=== PATIENT | female | born 1995 | race Caucasian/White ===

== ENCOUNTER 2021-10-23 18:39 | Observation (INO) | payer SELFPAY ==
[2021-10-23] MEDS ORDERED: Ondansetron 4 MG/2 ML SDV IVPUSH PRN (19:39)
[2021-10-23] MEDS ORDERED: LORazepam 2 MG/ML SDV IVPUSH PRN (19:39)
[2021-10-23] MEDS ORDERED: Sodium Chloride 0.9% 10 ML Syringe FLUSH PRN (19:39)
[2021-10-23] MEDS ORDERED: Ondansetron 4 MG Tab.DIS PO PRN (19:39)
[2021-10-23] MEDS ORDERED: Multivitamin Tab PO ONE (19:39)
[2021-10-23] MEDS ORDERED: Magnesium Hydroxide 400 MG/5 ML Susp 30 ML Cup PO PRN (20:40)
[2021-10-23] MEDS ORDERED: Acetaminophen 325 MG Tab PO PRN (20:40)
[2021-10-23 20:44] LABS: ANION GAP 16.4 meq/L (7-15)
[2021-10-23] MEDS ORDERED: Potassium Chloride 20 MEQ Tab.ER PO ONE (20:49)
[2021-10-23] MEDS ORDERED: Magnesium Sulfate/Water 2 GM in Premix Bag 1 BAG IV ONE (21:00)
[2021-10-23] MEDS: LORazepam 1 MG Tab PO SCH ×2 (21:08→22:52)
[2021-10-23] MEDS: Thiamine 100 MG Tab PO SCH (21:08)
[2021-10-23] MEDS: Nicotine 14 MG/24 Hr Patch TRDERM SCH (21:08)
[2021-10-23] MEDS: Potassium Phosphate,Mb-Db/Sodium Phosphate,Mb-Db Packet PO SCH (21:18)
[2021-10-23] MEDS: Lactated Ringers 1,000 ML IV SCH (23:06)
[2021-10-24] MEDS: LORazepam 1 MG Tab PO SCH ×4 (04:23→12:59)
[2021-10-24] MEDS: Lactated Ringers 1,000 ML IV SCH (07:11)
[2021-10-24] MEDS: Nicotine 14 MG/24 Hr Patch TRDERM SCH (07:20)
[2021-10-24] MEDS: Thiamine 100 MG Tab PO SCH (07:21)
[2021-10-24] MEDS: Potassium Phosphate,Mb-Db/Sodium Phosphate,Mb-Db Packet PO SCH (07:21)
[2021-10-24 08:05] LABS: POTASSIUM,POC 3.5 mmol/L (3.5-4.5)
== END 2021-10-24 17:37 | disposition left against medical advice (07) ==
LOC: LL.ED 18:39 → LL.MS 20:19
PROVIDERS: ADMIT Emergency Medicine; ATTEND Emergency Medicine
DX: R56.9 Unspecified convulsions (principal); F10.288 Alcohol dependence with other alcohol-induced disorder; F10.239 Alcohol dependence with withdrawal, unspecified; F17.210 Nicotine dependence, cigarettes, uncomplicated
CPT/HCPCS: 36415; 70450; 80047; 80053; 80307; 82550; 83605; 83735; 84100; 84703; 85025; 85027; 96361; 96365; 96366; 99217; 99285; A9270-GY; G0378; J3475; J7120